=== PATIENT | female | born 1990 | race Caucasian/White ===

== ENCOUNTER 2017-10-31 02:44 | Inpatient (IN) | payer BC, MEDICAID, OTHER ==
[2017-10-31 04:41] LABS: ABS Basophils 0 10^3/ul (0-0.2); ABS Eosinophils 0 10^3/ul (0-0.6); ABS Lymphocytes 1.3 10^3/ul (1.0-4.8); ABS Neutrophils 16.5 10^3/ul (1.5-7.7); ABS Nucleated RBC 0 10^3/ul; Eosinophil % 0.1 % (0-6); Hematocrit 35 % (35-47); Hemoglobin 11.6 g/dl (12.0-16.0); Lymphocyte % 6.8 % (25-47); Mean Corpuscular HGB Conc 33 g/dl (31-36); Mean Corpuscular Hemoglobin 31 pg (27-31); Mean Corpuscular Volume 94 fL (80-97); Mean Platelet Volume 9 um3 (7.4-10.4); Nucleated Red Blood Cells % 0; Platelet Count 220 10^3/ul (150-450); Red Blood Count 3.76 10^6/ul (4.0-5.4); Red Cell Distribution Width 15 % (10.5-15); White Blood Count 18.8 10^3/ul (3.5-10.8)
[2017-10-31] MEDS ORDERED: OBEPIDURAL* 250 ML EPIDURAL ONE (07:10)
[2017-10-31] MEDS ORDERED: Sodium Citrate/Citric Acid* 15 ML UDC PO PRN (08:35)
[2017-10-31] MEDS ORDERED: Phenylephrine IV* 40 MCG/ML 10 ML SYRINGE IV PUSH PRN ×2 (08:35)
[2017-10-31] MEDS ORDERED: OBEPIDURAL* 250 ML EPIDURAL SCH (09:00)
[2017-10-31] MEDS ORDERED: Calcium Carbonate CHEW TAB* 500 MG (TUMS) PO PRN (13:09)
[2017-10-31] MEDS ORDERED: Acetaminophen TAB* 325 MG ONE (13:38)
[2017-10-31] MEDS ORDERED: Gentamicin ADULT (*) 40 MG/ML VIAL IVPB ONE (14:32)
[2017-10-31] MEDS ORDERED: Ampicillin IV* 2 GM in NS 0.9% 100 ML* 100 ML IVPB SCH (15:00)
[2017-10-31] MEDS ORDERED: Gentamicin IVPREMIX 100 MG/100 ML BAG IV SCH (15:30)
[2017-10-31] MEDS ORDERED: ceFOXitin 2 GM IVPREMIX* 2 GM/50 ML BAG ONE (16:19)
[2017-10-31] MEDS ORDERED: ceFOXitin 2 GM IVPREMIX* 2 GM/50 ML BAG IVPB ONE (16:20)
[2017-10-31] MEDS ORDERED: Lidocaine 2% PF* 10 ML AMP ONE (16:43)
[2017-10-31] MEDS ORDERED: Ketorolac INJ* 30 MG/ML 1 ML VIAL ONE (16:53)
[2017-10-31] MEDS ORDERED: OXYTOCIN* 10 UNITS/ML 1 ML VIAL ONE ×2 (16:53→18:49)
[2017-10-31] MEDS ORDERED: Ondansetron INJ* 2 MG/ML VIAL ONE (16:53)
[2017-10-31] MEDS ORDERED: Midazolam* 1 MG/ML 2 ML VIAL (2 MG) ONE (17:17)
[2017-10-31] MEDS ORDERED: Carboprost Tromethamine* 250 MCG INJ ONE (17:30)
[2017-10-31] MEDS ORDERED: Morphine PF AMP (0.5MG/ML)* 5 MG/10 ML AMP ONE (17:32)
[2017-10-31] MEDS ORDERED: Lidocaine 0.5%* 50 ML SDV ONE (17:32)
[2017-10-31] MEDS ORDERED: HYDROmorphone INJ* 1 MG/ML CARPUJECT SYRINGE IV PRN (17:39)
[2017-10-31] MEDS ORDERED: oxyCODONE TAB* 5 MG TAB PO PRN (17:39)
[2017-10-31] MEDS ORDERED: Naloxone* 0.4 MG/ML 1 ML VIAL IV PRN ×2 (17:39→17:44)
[2017-10-31] MEDS ORDERED: Acetaminophen IV 1GM/100ML * 1,000 MG/100 ML VIAL IVPB ONE (17:39)
[2017-10-31] MEDS ORDERED: DiMENhydriNATE IV* 50 MG/ML VIAL IV PUSH PRN (17:39)
[2017-10-31] MEDS ORDERED: Witch Hazel PAD* JAR TOPICAL PRN (17:43)
[2017-10-31] MEDS ORDERED: Glycerin ADULT SUPP PR PRN (17:43)
[2017-10-31] MEDS ORDERED: Dibucaine 1% 28.35 GM TUBE PR PRN (17:43)
[2017-10-31] MEDS ORDERED: Ondansetron INJ* 2 MG/ML VIAL IV PRN (17:44)
[2017-10-31] MEDS ORDERED: oxyCODONE/Acetamin 5/325 MG* TAB PO PRN (17:44)
[2017-10-31] MEDS ORDERED: Nalbuphine* 20 MG/ML 1 ML VIAL IV PRN (17:44)
[2017-10-31] MEDS ORDERED: fentaNYL* 50 MCG/ML 2 ML VIAL (100 MCG VIAL) ONE (17:52)
[2017-10-31] MEDS ORDERED: Ibuprofen TAB* 600 MG PO SCH (18:00)
[2017-10-31] MEDS ORDERED: Methylergonovine INJ* 0.2 MG/ML 1ML AMP ONE (18:48)
[2017-10-31] MEDS: Docusate CAP* 100 MG PO SCH (21:57)
[2017-10-31] MEDS: Simethicone TAB* 80 MG TAB.CHEW PO SCH (21:57)
[2017-11-01 05:55] LABS: Hematocrit 27 % (35-47); Hemoglobin 8.9 g/dl (12.0-16.0); Mean Corpuscular HGB Conc 34 g/dl (31-36); Mean Corpuscular Hemoglobin 31 pg (27-31); Mean Corpuscular Volume 94 fL (80-97); Mean Platelet Volume 9 um3 (7.4-10.4); Platelet Count 150 10^3/ul (150-450); Red Blood Count 2.86 10^6/ul (4.0-5.4); Red Cell Distribution Width 16 % (10.5-15); White Blood Count 27.7 10^3/ul (3.5-10.8)
[2017-11-01 06:37] LABS: ABS Basophils 0 10^3/ul (0-0.2); ABS Eosinophils 0 10^3/ul (0-0.6); ABS Lymphocytes 0.7 10^3/ul (1.0-4.8); ABS Monocytes 0.7 10^3/ul (0-0.8); ABS Neutrophils 26.2 10^3/ul (1.5-7.7); ABS Nucleated RBC 0 10^3/ul; Eosinophil % 0.1 % (0-6); Lymphocyte % 2.5 % (25-47); Nucleated Red Blood Cells % 0
[2017-11-01] MEDS: Simethicone TAB* 80 MG TAB.CHEW PO SCH ×5 (08:08→19:38)
[2017-11-01] MEDS: Docusate CAP* 100 MG PO SCH ×3 (08:08→19:38)
[2017-11-01] MEDS: Acetaminophen TAB* 325 MG PO PRN ×2 (08:12→15:09)
[2017-11-01] MEDS: Ferrous Gluconate TAB* 324 MG TAB PO SCH ×2 (08:12→19:38)
[2017-11-01] MEDS ORDERED: oxyCODONE/Acetamin 5/325 MG* TAB PO PRN ×2 (09:37)
[2017-11-01] MEDS: Ibuprofen TAB* 600 MG PO PRN ×2 (11:18→19:38)
[2017-11-01] MEDS: Ampicillin IV* 2 GM in NS 0.9% 100 ML* 100 ML IVPB SCH ×2 (13:31→19:40)
[2017-11-01] MEDS: Gentamicin IVPREMIX 100 MG/100 ML BAG IV SCH ×2 (14:11→21:36)
--- NOTE | 2017-11-01 15:34 | PTEDU ---
Patient Name: CALE KAUR CALE KAUR selected video: BBOB: Nurturing Your Gorgeous &Growing Baby by to view o n 11/01/2017 at 3:34:01 PM [id number]
--- NOTE | 2017-11-01 16:04 | PTEDU ---
Patient Name: CALE KAUR CALE KAUR selected video: Follow Me Mum: The [place] to Successful to view on 11/01/19 18 at 4:03:51 PM [id number]
[2017-11-01] MEDS ORDERED: Zolpidem TAB* 5 MG PO PRN (21:00)
--- NOTE | 2017-11-01 23:22 | OP ---
DATE OF OPERATION: 10/31/17 - ROOM #[facility]OB-102 DATE OF : [birth year] SURGEON: Carlos Portillo MD PLANTING MATERIAL CARRIER: Bina Kelley CM ANESTHESIA: Epidural. PRE-OP DIAGNOSIS: Intrauterine at 39 weeks labor with arrest of descent in labor. POST-OP DIAGNOSIS: Intrauterine at 39 weeks labor with arrest of descent in labor. OPERATIVE PROCEDURE: Primary low-transverse section. ESTIMATED BLOOD LOSS: 1200 cc. URINE OUTPUT: Clear. IV FLUIDS: She received 2100 cc of IV crystalloid fluids. FINDINGS: Delivery of a viable male infant with a weight of 8 pounds and 7 ounces with Apgars of 9 and 9. The placenta was grossly intact with a 3-vessel cord noted. The uterus, adnexa and bladder were within normal limits. COMPLICATIONS: Uterine anatomy intraoperatively treated with Pitocin IM into the uterus, Methergine and Hemabate. DESCRIPTION OF PROCEDURE: The patient was taken to the operating room where she was identified. She was placed on operating table where an epidural anesthetic was obtained without difficulty. The patient was placed in the supine position with a leftward tilt, prepped and draped in a normal sterile fashion. A Pfannenstiel skin incision was made with a knife and carried through to the underlying layer of fascia. The fascia was nicked in the midline and extended laterally with curved Godinez scissors. The fascia was then grasped superiorly and inferiorly with Misa clamps and dissected off sharply from the rectus muscle. The rectus muscle was in the midline bluntly. The peritoneum was identified, grasped with pickups and entered sharply with Metzenbaum scissors and extended superoinferiorly, sharply. At this point, a bladder flap was created using Metzenbaum scissors over which the bladder blade was then inserted. A lower transverse uterine incision was made with a knife. The incision was extended laterally with bandage scissors. The amniotic sac was ruptured. The 's head was then grasped and delivered atraumatically and the rest of the infant's body was then delivered. The cord was clamped and cut. The was handed off to the awaiting hamper maker. Cord bloods were obtained. The placenta was removed manually. The uterus was then exteriorized, cleared of all clot and debris using moist laparotomy sponges. The uterine incision was closed using 0 Polysorb suture in a running locked fashion with a second imbricating layer of 0 Polysorb suture with good hemostasis noted. At this point, the uterus was noted to be atonic. IV Pitocin was started by the anesthesiologist. I also injected 20 units of Pitocin into the muscular layer of the uterus to assess with the atony. The patient was also given IM Hemabate and Methergine. The uterus was returned to the patient' s abdomen. The gutters were then cleared off all clot and debris using moist laparotomy sponges. All the instruments were removed from the patient's abdomen. The peritoneum was then closed using 3-0 Polysorb suture in a running fashion, the fascia was closed using 0 Polysorb suture in a running fashion, and the skin was closed with 4-0 Monocryl subcuticular stitch. The patient tolerated the procedure well. At the end of the procedure, I performed a bimanual exam and removed about 500 cc of blood clot from the patient's lower uterine segment. The uterus was then noted to be firm well below the umbilicus. The patient was then transferred to recovery room area in stable condition. [id number]/[facility] #: [id number] MTDMercedes
[2017-11-02] MEDS: Ampicillin IV* 2 GM in NS 0.9% 100 ML* 100 ML IVPB SCH ×2 (01:42→07:36)
[2017-11-02] MEDS: Ibuprofen TAB* 600 MG PO PRN (01:53)
[2017-11-02] MEDS: Gentamicin IVPREMIX 100 MG/100 ML BAG IV SCH (06:28)
[2017-11-02 06:41] LABS: ABS Basophils 0.1 10^3/ul (0-0.2); ABS Eosinophils 0.1 10^3/ul (0-0.6); ABS Lymphocytes 1.1 10^3/ul (1.0-4.8); ABS Monocytes 0.8 10^3/ul (0-0.8); ABS Neutrophils 17.4 10^3/ul (1.5-7.7); ABS Nucleated RBC 0 10^3/ul; Eosinophil % 0.6 % (0-6); Hematocrit 24 % (35-47); Hemoglobin 7.9 g/dl (12.0-16.0); Lymphocyte % 5.8 % (25-47); Mean Corpuscular HGB Conc 33 g/dl (31-36); Mean Corpuscular Hemoglobin 31 pg (27-31); Mean Corpuscular Volume 94 fL (80-97); Mean Platelet Volume 9 um3 (7.4-10.4); Nucleated Red Blood Cells % 0; Platelet Count 148 10^3/ul (150-450); Red Blood Count 2.54 10^6/ul (4.0-5.4); Red Cell Distribution Width 16 % (10.5-15); White Blood Count 19.5 10^3/ul (3.5-10.8)
[2017-11-02 07:09] LABS: EGFR Non-African American 70.6 (>60)
[2017-11-02] MEDS: Acetaminophen TAB* 325 MG PO PRN ×3 (07:44→20:02)
[2017-11-02] MEDS: Ferrous Gluconate TAB* 324 MG TAB PO SCH ×2 (09:20→19:55)
[2017-11-02] MEDS: Docusate CAP* 100 MG PO SCH ×3 (09:20→19:59)
[2017-11-02] MEDS: Simethicone TAB* 80 MG TAB.CHEW PO SCH ×4 (09:21→19:25)
[2017-11-03] MEDS: Docusate CAP* 100 MG PO SCH (07:32)
[2017-11-03] MEDS: Simethicone TAB* 80 MG TAB.CHEW PO SCH (07:32)
[2017-11-03] MEDS: Ferrous Gluconate TAB* 324 MG TAB PO SCH (07:32)
[2017-11-03] MEDS: Acetaminophen TAB* 325 MG PO PRN (07:32)
--- NOTE | 2017-11-03 10:20 | PTEDU ---
Patient Name: CALE KAUR CALE KAUR selected video: Never Ever Shake a Baby to view on 11/03/2017 at 10:19:26 AM from [id number]
[2017-11-03 10:25] VITALS: BP 105/86
== END 2017-11-03 11:00 | disposition home or self-care (01) | DRG 540 ==
LOC: MCHOBOUT 02:44 → MCHOB 07:16
PROVIDERS: ADMIT Midwife; ATTEND Midwife
PROC: 10D00Z1 Extraction of Products of Conception, Low, Open Approach (ICD-10-PCS; principal; 2017-10-31)
PROC: 10907ZC Drainage of Amniotic Fluid, Therapeutic from Products of Conception, Via Natural or Artificial Opening (ICD-10-PCS; 2017-10-31)
PROC: 4A1HXCZ Monitoring of Products of Conception, Cardiac Rate, External Approach (ICD-10-PCS; 2017-10-31)
DX: O99.214 Obesity complicating childbirth (principal); O75.2 Pyrexia during labor, not elsewhere classified; E66.9 Obesity, unspecified; Z68.36 Body mass index [BMI] 36.0-36.9, adult; O62.1 Secondary uterine inertia; Z3A.39 39 weeks gestation of pregnancy; Z37.0 Single live birth; O77.0 Labor and delivery complicated by meconium in amniotic fluid; O62.2 Other uterine inertia; O32.4XX0 Maternal care for high head at term, not applicable or unspecified
CPT/HCPCS: 36415; 80170; 82565; 84520; 85025; 86850; 86900; 86901; 87070; 87077; A9270-GY; J0290; J0694; J1580; J1885; J2001; J2210; J2250; J2405; J2590; J3010

== ENCOUNTER 2019-07-28 11:21 | Emergency (ER) | payer OTHER ==
[2019-07-28] MEDS ORDERED: Ondansetron INJ* 2 MG/ML VIAL IV ONE (11:34)
[2019-07-28] MEDS ORDERED: NS 0.9% 1000 ML** 1,000 ML IV ONE (11:34)
--- NOTE | 2019-07-28 11:34 | ED ---
Nausea/Vomiting/Diarrhea HPI - HPI Summary HPI Summary: Patient is a 28-year-old female who presents emergency department for vomiting and diarrhea that started yesterday. Patient states family members have been sick with similar symptoms. Patient notes she is 34 weeks . She denies abdominal pain, vaginal bleeding or discharge. Patient also notes fever and chills. Denies chest pain or shortness of breath. Symptoms are moderate in severity. No current modifying factors. - History of Current Complaint Chief Complaint: EDLisethuseaVomitCherarrgato Stated Complaint: VOMING , 34 WEEKS PREG Time Seen by Provider: 07/28/19 11:26 Pain Intensity: 2 - Allergies/Home Medications Allergies/Adverse Reactions: Allergies Allergy/AdvReac Type Severity Reaction Status Date / Time No Known Allergies Allergy Verified 10/31/17 04:27 PMH/Surg Hx/FS Hx/Imm Hx Previously Healthy: Yes Infectious Disease History: No Infectious Disease History: Denies: Traveled Outside the [place] in Last 30 Days - Family History Known Family History: Positive: Non-Contributory - Social History Occupation: Unemployed Lives: With Family Alcohol Use: None Substance Use Type: Reports: None Smoking Status (MU): Never Smoked Tobacco Review of Systems Positive: Fever, Chills ENT: Negative Cardiovascular: Negative Respiratory: Negative Positive: Vomiting, Diarrhea, Nausea. Negative: Abdominal Pain Genitourinary: Negative Negative: dysuria Positive: Myalgia Skin: Negative Neurological: Negative All Other Systems Reviewed And Are Negative: Yes Physical Exam Triage Information Reviewed: Yes Vital Signs On Initial Exam: Initial Vitals Temp Pulse Resp BP Pulse Ox 98.4 F 111 16 128/68 98 07/28/19 11:23 07/28/19 11:23 07/28/19 11:23 07/28/19 11:23 07/28/19 11:23 Vital Signs Reviewed: Yes Appearance: Positive: Well-Appearing - Patient lying in bed in no acute distress. Pleasant. Skin: Positive: Warm, Dry Head/Face: Positive: Normal Head/Face Inspection Eyes: Positive: Normal, EOMI, BRADLEY Neck: Positive: Supple Respiratory/Lung Sounds: Positive: Clear to Auscultation, Breath Sounds Present Cardiovascular: Positive: Normal, RRR Abdomen Description: Positive: Other: - Gravid appearing. Abdomen is soft and nontender throughout. Neurological: Positive: Normal, CN Intact II-III Psychiatric: Positive: Affect/Mood Appropriate Procedures - Sedation Patient Received Moderate/Deep Sedation with Procedure: No Diagnostics - Vital Signs Vital Signs Temp Pulse Resp BP Pulse Ox 07/28/19 11:23 98.4 F 111 16 128/68 98 - Laboratory Result Diagrams: 07/28/19 11:48 07/28/19 11:48 Lab Statement: Any lab studies that have been ordered have been reviewed, and results considered in the medical decision making process. Naus/Vom/Diarrhea Course/Dx - Course Course Of Treatment: Patient with vomiting and diarrhea. She has a benign abdominal exam. Patient given IV fluids and Zofran. Patient feeling much better on reexamination and is tolerating by mouth fluids. Blood work is unremarkable other than low magnesium, patient given 800 mg by mouth. Zofran prescribed. Advised patient clinically liquid diet 24 hours. Increase magnesium intake. Follow up with her OB if symptoms persist and return to the ER symptoms change or worsen. Patient understands and agrees with them. - Differential Dx/Diagnosis Differential Diagnoses - Female: Appendicitis, Gastroenteritis (Viral), Gastroenteritis (Bacterial), Vomiting, Diarrhea Provider Diagnosis: Gastroenteritis Condition At Discharge: Improved Discharge ED - Sign-Out/Discharge Documenting (check all that apply): Patient Departure - Discharge Plan Condition: Improved Disposition: HOME Prescriptions: Ondansetron TAB* [Zofran 4 MG Tab*] 4 mg PO Q6H PRN #12 tab PRN Reason: Nausea Patient Education Materials: Gastroenteritis (ED), Hypomagnesemia (ED) Referrals: Carlos Portillo MD [Primary Care Provider] - Additional Instructions: Follow up with OB if symptoms persist Increase fluids Clear liquid diet x 24 hours Zofran if needed for vomiting Increase magnesium intake Return to ER if symptoms change or worsen - Billing Disposition and Condition Condition: IMPROVED Disposition: Home - Attestation Statements Provider Attestation: I was available for consult. This patient was seen by the HELEN. The patient was not presented to, seen by, or examined by me. Brady Toledo MD
[2019-07-28 11:55] LABS: ABS Lymphocytes 0.2 10^3/ul (1.0-4.8); ABS Monocytes 0.4 10^3/ul (0-0.8); ABS Neutrophils 7.1 10^3/ul (1.5-7.7); Hematocrit 38 % (35-47); Hemoglobin 12.8 g/dL (12.0-16.0); Lymphocyte % 2.3 %; Mean Corpuscular HGB Conc 34 g/dL (31-36); Mean Corpuscular Hemoglobin 32 pg (27-31); Mean Corpuscular Volume 94 fL (80-97); Mean Platelet Volume 7.9 fL (7.4-10.4); Platelet Count 233 10^3/uL (150-450); Red Blood Count 4.05 10^6 /uL (3.70-4.87); Red Cell Distribution Width 14 % (10-15); White Blood Count 7.7 10^3/uL (3.5-10.8)
[2019-07-28 12:14] LABS: Albumin 3.2 g/dL (3.2-5.2); BUN/Creatinine Ratio 19.1 (8-20); Calcium 8.4 mg/dL (8.6-10.3); EGFR African American 124.7 (>60); Globulin 3.2 g/dL (2-4); Magnesium 1.3 mg/dL (1.9-2.7); Potassium 3.6 mmol/L (3.5-5.0); Total Bilirubin 0.5 mg/dL (0.2-1.0); Total Protein 6.4 g/dL (6.4-8.9)
[2019-07-28] MEDS ORDERED: Magnesium Oxide TAB* 400 MG PO ONE (12:24)
[2019-07-28] MEDS ORDERED: Acetaminophen TAB* 325 MG PO ONE (13:05)
[2019-07-28 13:34] VITALS: BP 109/68
== END 2019-07-28 13:33 | disposition home or self-care (01) ==
LOC: ED 11:21
DX: O99.613 Diseases of the digestive system complicating pregnancy, third trimester (principal); K52.9 Noninfective gastroenteritis and colitis, unspecified; Z3A.24 24 weeks gestation of pregnancy
CPT/HCPCS: 36415; 80053; 83735; 85025; 96361; 96374; 99282; A9270-GY; J2405

== ENCOUNTER 2019-09-02 06:04 | Inpatient (IN) | payer OTHER ==
[~2019-09-02 06:04] MED LIST: Acetaminophen TAB* 325 MG PO ONE; Buffered Lidocaine 1% SYRIN* 1 ML/SYRINGE INTRADERM ONE; Famotidine IV* 10 MG/ML 2 ML (20 mg) IV ONE; Lactated Ringers 1000 ML Bag* 1,000 ML IV SCH; Sodium Citrate/Citric Acid* 15 ML UDC PO ONE
[2019-09-02 08:09] LABS: Urine Benzodiazepine Screen None Detected (None Detect); Urine Opiates Screen None Detected (None Detect)
[2019-09-02] MEDS ORDERED: Buffered Lidocaine 1% SYRIN* 1 ML/SYRINGE INTRADERM ONE (08:25)
[2019-09-02] MEDS ORDERED: Lactated Ringers 1000 ML Bag* 1,000 ML IV ONE (08:25)
[2019-09-02] MEDS ORDERED: ceFOXitin 2 GM IVPREMIX* 2 GM/50 ML BAG IVPB ONE (08:25)
[2019-09-02] MEDS ORDERED: ceFOXitin 2 GM IVPREMIX* 2 GM/50 ML BAG ONE (08:26)
--- NOTE | 2019-09-02 08:32 | HP ---
General Information - Reason for Visit at term, prior section declined TOLAC. - General Information Maternal Age: 29 Grav: 2 Para: 1 SAB: 0 IEA: 0 Estimated Due Date: 09/07/19 Determined By: LMP Gestational Age in Weeks/Days: 39 2/7 Maternal Blood Type and Rh: A Positive - Results this Serology/RPR Result: Non-Reactive Rubella Result: Immune HBsAg Result: Negative HIV Result: Negative GBS Culture Result: Negative Past Medical History Delivery History: Hx C/Section, See Records Pertinent Past Medical History: See Records Pertinent Past Surgical History: See Records Pertinent Family History: See Records - Antepartal Records Antepartal Records: Reviewed, Complicated by: - Prior section Review of Systems Constitutional: Comfortable CV Complaint: No Respiratory: Shortness of Breath: No Gastrointestinal: No Nausea/Vomiting, Normal Bowel Movement Genitourinary: No Dysuria, No Bleeding, No Leaking Fluid Musculoskeletal: No Complaint, No Epigastric Pain Neurological: No Headache, No Visual Changes Movement: Normal Exam Allergies/Adverse Reactions: Allergies No Known Allergies Allergy (Verified 08/31/19 14:32) Vital Signs 09/02/19 06:37 Temperature 98.2 F Pulse Rate 92 Respiratory 20 Rate Blood Pressure 114/71 (mmHg) O2 Sat by Pulse 98 Oximetry Lab Values - Entire Visit: Laboratory Tests 09/02/19 07:15 Urine Opiates Screen None detected Ur Barbiturates Screen None detected Ur Phencyclidine Scrn None detected Ur Amphetamines Screen None detected U Benzodiazepines Scrn None detected Urine Cocaine Screen None detected U Cannabinoids Screen None detected - Measurements Height: 5 ft 8 in Weight: 226 lb Weight in lbs: [phone] Body Mass Index (BMI): 34.3 Pre- Weight: 175 lb Weight Gained This : 51 lbs and 0 ozs - Exam Breast: Breast Exam Deferred CVA: No CVA Tenderness Extremities: No Edema Heart: Normal Rhythm/Heart Sounds HEENT: No Significant Findings Lungs: Clear Bilaterally Rectal: Rectal Exam Deferred Reflexes: DTR 2+ Thyroid: No Thyromegaly - Abdominal Exam Abdomen Exam: Non-Tender, Fundal Height Consistent with Dates - Ultrasound/Biophysical Profile Ultrasound Status: Not Done Targeted Exam Findings See L&D Outpatient Visit Provider Note for Findings: N/A Cervical Exam: Closed Station: 0 Presenting Part: Vertex Membrane Status: Intact Bleeding/Discharge: None EFM Findings - External Monitor Findings Baseline Heart Rate: 130 External Monitor Findings: Accelerations Present, No Pattern of Variable or Late Decelerations Contractions: None Assessment/Plan - Assessment planned section - Obstetrical Risk Factors Obstetrical Risk Factors: Previous C/Section in Labor - Plan Plan: IV Hydration, Expedite C/S Delivery, Antibiotic Prophylaxis, C/S Delivery - Date/Time of Admission Date of Admission: 09/02/19 Time of Admission: 07:00
[2019-09-02] MEDS ORDERED: Morphine PF AMP (0.5MG/ML)* 5 MG/10 ML AMP ONE (08:44)
[2019-09-02] MEDS ORDERED: Bupivacaine 0.5% SDV PF* 30ML VIAL ONE (08:45)
[2019-09-02] MEDS ORDERED: Lactated Ringers 1000 ML Bag* 1,000 ML IV SCH ×2 (09:00→11:00)
[2019-09-02] MEDS ORDERED: OXYTOCIN* 10 UNITS/ML 1 ML VIAL ONE (09:24)
[2019-09-02] MEDS ORDERED: Ondansetron INJ* 2 MG/ML VIAL ONE (09:24)
[2019-09-02] MEDS ORDERED: Ketorolac INJ* 30 MG/ML 1 ML VIAL ONE (09:24)
[2019-09-02] MEDS ORDERED: EPHEDrine (Pressors)* 50 MG/ML VIAL ONE (09:25)
[2019-09-02] MEDS ORDERED: Scopolamine 1.5 mg* PATCH TRANSDERM PRN (09:52)
[2019-09-02] MEDS ORDERED: diPHENhydraMINE IV* 50 MG/ML 1 ml VIAL (BENADRYL) IV PRN (09:52)
[2019-09-02] MEDS ORDERED: HYDROcodone/ACETAMIN 5-325 MG* 1 TAB PO PRN (09:52)
[2019-09-02] MEDS ORDERED: DiMENhydriNATE IV* 50 MG/ML VIAL IV PUSH PRN (09:52)
[2019-09-02] MEDS ORDERED: fentaNYL* 50 MCG/ML 2 ML VIAL (100 MCG VIAL) IV PRN (09:52)
[2019-09-02] MEDS ORDERED: Naloxone* 0.4 MG/ML 1 ML VIAL IV PRN ×2 (09:52)
[2019-09-02] MEDS ORDERED: Ondansetron INJ* 2 MG/ML VIAL IV PRN (09:52)
[2019-09-02] MEDS ORDERED: Dibucaine 1% 28.35 GM TUBE PR PRN (10:15)
[2019-09-02] MEDS ORDERED: Zolpidem TAB* 5 MG PO PRN (10:15)
[2019-09-02] MEDS ORDERED: Witch Hazel PAD* JAR TOPICAL PRN (10:15)
[2019-09-02] MEDS ORDERED: Glycerin ADULT SUPP PR PRN (10:15)
[2019-09-02] MEDS: Ketorolac INJ* 30 MG/ML 1 ML VIAL IV SCH ×3 (11:15→22:44)
[2019-09-02] MEDS: Acetaminophen TAB* 325 MG PO SCH ×4 (12:38→22:48)
[2019-09-02] MEDS: Simethicone TAB* 80 MG TAB.CHEW PO SCH ×3 (12:39→20:58)
[2019-09-02] MEDS: Docusate CAP* 100 MG PO SCH ×2 (14:06→20:58)
[2019-09-03] MEDS ORDERED: oxyCODONE/Acetamin 5/325 MG* TAB PO PRN ×2 (01:00)
--- NOTE | 2019-09-03 03:43 | OP ---
DATE OF OPERATION: 09/02/19 - ROOM #116 DATE OF : 89 SURGEON: Carlos Portillo MD REFRIGERATION SYSTEMS INSTALLER: Dr. Candice Whitfield. ANESTHESIA: Spinal. PRE-OP DIAGNOSIS: at 39 weeks, prior section, declined trial of labor after . POST-OP DIAGNOSIS: at 39 weeks, prior section, declined trial of labor after . OPERATIVE PROCEDURE: Repeat low-transverse section. ESTIMATED BLOOD LOSS: 600 cc. SPECIMENS SENT TO PATHOLOGY: Cord blood. FLUIDS: She received 2300 cc of IV crystalloid fluid. URINE OUTPUT: Clear. FINDINGS: Delivery of a female with Apgars of 8 and 8, with clear fluid , weighing 8 pounds and 9 ounces. The uterus, adnexa, bowel, and bladder were all within normal limits, and there were no complications during this procedure. DESCRIPTION OF PROCEDURE: The patient was taken to the operating room where she was identified. She was placed on the operating table, where a spinal anesthetic was obtained without difficulty. She was then placed in the supine position with a leftward tilt, prepped and draped in the normal sterile fashion. A Pfannenstiel skin incision was made with a knife and extended laterally with curved Godinez scissors. The fascia was then grasped superiorly and inferiorly with Misa clamps and dissected off sharply from the rectus muscle. The rectus muscles were in the midline bluntly. The peritoneum was identified, grasped with pickups, and entered sharply with Metzenbaum scissors. The peritoneum was then extended superiorly and inferiorly sharply. A self-retaining retractor was inserted into the patient's abdomen. A bladder flap was created using Metzenbaum scissors. A low- transverse uterine incision was then made with a knife, extended laterally with bandage scissors. The amniotic sac was ruptured. The 's head was then grasped and delivered atraumatically. The rest of the 's body was then delivered. The cord was clamped and cut, and the was handed off to the awaiting principal network engineer. Cord bloods were obtained. The placenta was removed manually. The uterus was then left in place and cleared of all clots and debris using moist laparotomy sponges. The uterine incision was then closed using 0 Polysorb suture in a running locked fashion with a second imbricating layer of 0 Polysorb suture with good hemostasis noted. Irrigation fluid was then poured into the abdomen and suctioned. Moist laparotomy sponges were also used to clear the abdominal gutters. All the sponges and instruments were removed from the patient's abdomen. The self-retaining retractor was then removed. The peritoneum was then closed using 3-0 Polysorb suture in a running fashion. The fascia was closed using 0 Polysorb suture in a running fashion and the skin was closed with a 4-0 Monocryl subcuticular stitch. The patient tolerated the procedure well. Sponge, lap, and needle counts were correct x2. She was then transferred to the recovery room area in stable condition. [id number]/[facility] #: [id number] MTDD
[2019-09-03 05:53] LABS: ABS Basophils 0.1 10^3/ul (0-0.2); ABS Eosinophils 0.1 10^3/ul (0-0.6); ABS Lymphocytes 1.6 10^3/ul (1.0-4.8); ABS Monocytes 0.8 10^3/ul (0-0.8); ABS Neutrophils 7.4 10^3/ul (1.5-7.7); Eosinophil % 0.8 %; Hematocrit 27 % (35-47); Hemoglobin 8.8 g/dL (12.0-16.0); Lymphocyte % 16.2 %; Mean Corpuscular HGB Conc 33 g/dL (31-36); Mean Corpuscular Hemoglobin 30 pg (27-31); Mean Corpuscular Volume 92 fL (80-97); Nucleated Red Blood Cells % 0.1; Platelet Count 197 10^3/uL (150-450); Red Cell Distribution Width 15 % (10-15); White Blood Count 9.9 10^3/uL (3.5-10.8)
[2019-09-03] MEDS: Acetaminophen TAB* 325 MG PO PRN ×4 (06:52→21:40)
[2019-09-03] MEDS: Docusate CAP* 100 MG PO SCH ×3 (08:24→20:13)
[2019-09-03] MEDS: Simethicone TAB* 80 MG TAB.CHEW PO SCH ×4 (08:24→20:13)
[2019-09-03] MEDS: Ferrous Gluconate TAB* 324 MG TAB PO SCH ×2 (08:24→20:13)
[2019-09-03] MEDS: Ibuprofen TAB* 600 MG PO PRN ×2 (08:59→16:49)
[2019-09-03] MEDS: Ketorolac INJ* 30 MG/ML 1 ML VIAL IV SCH (13:54)
[2019-09-04] MEDS: Ibuprofen TAB* 600 MG PO PRN (03:59)
[2019-09-04] MEDS: Acetaminophen TAB* 325 MG PO PRN ×2 (04:00→08:48)
[2019-09-04] MEDS: Docusate CAP* 100 MG PO SCH (08:48)
[2019-09-04] MEDS: Simethicone TAB* 80 MG TAB.CHEW PO SCH (08:48)
[2019-09-04] MEDS: Ferrous Gluconate TAB* 324 MG TAB PO SCH (08:48)
[2019-09-04 09:32] VITALS: BP 125/66
[2019-09-05] MEDS ORDERED: Scopolamine PATCH Remove* 1 NOTE MISC PATCH OFF PRN (09:54)
== END 2019-09-04 12:41 | disposition home or self-care (01) | DRG 540 ==
LOC: MCHOB 06:04
PROVIDERS: ADMIT Obstetrics & Gynecology; ATTEND Obstetrics & Gynecology
PROC: 4A1HXCZ Monitoring of Products of Conception, Cardiac Rate, External Approach (ICD-10-PCS; 2019-09-02)
PROC: 10D00Z1 Extraction of Products of Conception, Low, Open Approach (ICD-10-PCS; principal; 2019-09-02 07:45)
DX: O34.211 Maternal care for low transverse scar from previous cesarean delivery (principal); Z3A.39 39 weeks gestation of pregnancy; Z37.0 Single live birth; O90.81 Anemia of the puerperium
CPT/HCPCS: 36415; 80307; 85025; A9270-GY; J0694; J1200; J1240; J1885; J2405; J2590; J3490